=== PATIENT | male | born 1980 | race American Indian/Alaskan Native ===

== ENCOUNTER 2017-03-02 21:26 | Emergency (ER) | payer SELFPAY ==
--- NOTE | 2017-03-03 02:39 | Emergency Department Report ---
HPI - General Chief Complaint: Sore Throat Time Seen by Provider: 03/03/17 02:33 - HPI HPI: Patient is a 36year-old male who presents to ED with his mother complaining of throat pain 4 days. Patient describes pain as throbbing in nature, 8 out of 10 intensity, nonradiating, localized to his throat and some sinus cell along the side of his right neck suture recheck. Admits pain with swallowing and eating. Patient admits no appetite due to throat pain. Patient denies fever cough . Admits right-sided ear throbbing. Patient denies nausea/vomiting/abdominal pain/shortness of breath/chest pain/ headache. ED Past Medical Hx - Past Medical History Previous Medical History?: Yes Hx Seizures: Yes - Surgical History Past Surgical History?: No - Social History Smoking Status: Current Some Day Smoker Substance Use Type: Alcohol - Medications Home Medications: Home Medications Medication Instructions Recorded Confirmed Last Taken Type Ibuprofen [Motrin] 800 mg PO Q8HR PRN #30 tablet 03/03/17 Unknown Rx ED Review of Systems ROS: Stated complaint: SORE THROAT/RIGHT EAR PAIN Other details as noted in HPI Constitutional: denies: chills, fever Eyes: denies: eye pain, eye discharge, vision change ENT: throat pain. denies: ear pain, dental pain, epistaxis Respiratory: denies: cough, shortness of breath, wheezing Cardiovascular: denies: chest pain, palpitations Endocrine: no symptoms reported Gastrointestinal: denies: abdominal pain, nausea, diarrhea Genitourinary: denies: urgency, dysuria Musculoskeletal: denies: back pain, joint swelling, arthralgia Skin: denies: rash, lesions Neurological: denies: headache, weakness, paresthesias Psychiatric: denies: anxiety, depression Hematological/Lymphatic: denies: easy bleeding, easy bruising Physical Exam - Physical Exam Vital Signs: Vital Signs 03/02/17 21:57 Temperature 98.9 F Pulse Rate 87 Respiratory 18 Rate Blood Pressure 141/107 O2 Sat by Pulse 98 Oximetry Physical Exam: GENERAL: Alert and oriented x3, no apparent distress, Normal Gait, atraumatic. HEAD: Head is normocephalic and a-traumatic. EYES: Extra ocular muscles are intact. Pupils are equal, round, and reactive to light and accommodation. EARS: symetrical, atraumatic, non tender, ear canal clear and moderate cerumen, tympanic membrance non inflamed. gross auditory nml bilaterally. MOUTH:Mouth is well hydrated and without lesions. Tonsils are not erythematous , mild swollen, Uvula midline, Tongue elevated. Mucous membranes are moist. Posterior pharynx clear, no exudate or lesions. Patent airways. NECK: Supple. Non edematous, No carotid bruits. positive anterior cervical lymphadenopathy , no thyromegaly. No C-spine tenderness LUNGS: Symetrical with respiration, No wheezing, no rales or crackles, CTAB. HEART: S1, S2 present, regular rate and rhythm without murmur, no rubs, no gallops. ABDOMEN: No organomegaly was noted,Positive bowel sounds, soft, and non- distended. . Nontender to palpation on all Quadrants, NO CVA tenderness. SKIN: Warm and dry, No lesions, No ulceration or induration present. ED Course Vital Signs 03/02/17 21:57 Temperature 98.9 F Pulse Rate 87 Respiratory 18 Rate Blood Pressure 141/107 O2 Sat by Pulse 98 Oximetry ED Medical Decision Making - Medical Decision Making 36-year-old male presents with strep pharyngitis. ED course: Rapid strep tests ordered rapid strep test positive Patient received 1 dose of Tylenol/cod, 1.2 million units of penicillin, 60 mg of prednisone. Fever responsive to one dose of Tylenol. Vital signs stable patient is in no acute or respiratory distress. Discussed findings with patient about the positive strep. Discussed treatment in ED with patient Discussed the patient that strep throat is contagious and to limit sharing spoons and such. Application to be sent home on Motrin Discussed with patient follow-up with primary care physician. Patient verbally states he understands and will comply to follow-up. Critical care attestation.: If time is entered above; I have spent that time in minutes in the direct care of this critically ill patient, excluding procedure time. ED Disposition Clinical Impression: Strep pharyngitis Disposition: DISCHARGED TO HOME OR SELFCARE Is pt being admited?: No Does the pt Need Aspirin: No Condition: Stable Instructions: Tonsillitis (ED), Strep Throat (ED) Additional Instructions: Taking medication as prescribed Prescriptions: Ibuprofen [Motrin] 800 mg PO Q8HR PRN #30 tablet PRN Reason: Pain Referrals: ROSE MARY SUAZO MD [Referring] - 3-[address] [facility] [place] [Outside] - 3-5 Days [facility] [Outside] - 3-5 Days Forms: Accompanied Note, Work/School Release Form(ED) Time of Disposition: 03:26
[2017-03-03] MEDS ORDERED: TYLENOL/CODEINE PO ONE (03:21)
[2017-03-03] MEDS ORDERED: DELTASONE PO ONE (03:24)
[2017-03-03] MEDS ORDERED: BICILLIN L-A IM ONE ×2 (03:24→05:00)
[2017-03-03 04:55] VITALS: BP 168/95
== END 2017-03-03 04:55 | disposition home or self-care (01) ==
LOC: ED 21:26
DX: J02.0 Streptococcal pharyngitis (principal); F17.200 Nicotine dependence, unspecified, uncomplicated
CPT/HCPCS: 87430; 96372; 99282; J0561; J7512